=== PATIENT | female | born 1985 | race Caucasian/White ===

== ENCOUNTER → 2016-07-20 | Outpatient (CLI) | payer OTHER ==
[~2016-07-20] MED LIST: DOXYCYCLINE HY100 MG PO; PRENATAL 1+1)(P1 TAB PO; VENLAFAXINE H37.5 MG PO
--- NOTE | 2016-07-20 11:55 | NUR ---
Navigator role introduced and brochure given to patient prior to breast biopsy. Will call patient tomorrow to see how she is doing.
== END | disposition disaster alternative care site (69) ==
LOC: GOPD 07-17
PROC: 0HBT3ZX Excision of Right Breast, Percutaneous Approach, Diagnostic (ICD-10-PCS; principal; 2016-07-20)
DX: N64.89 Other specified disorders of breast (principal); R92.0 Mammographic microcalcification found on diagnostic imaging of breast
CPT/HCPCS: J7050